=== PATIENT | female | born 1995 | race Caucasian/White ===

== ENCOUNTER 2018-02-16 21:04 | Emergency (ER) | payer BC ==
[~2018-02-16] VITALS: Ht 162.6 cm; Wt 72.6 kg
[~2018-02-16 21:04] MED LIST: AZIT250 PO; CEPH500 PO; CODGUAEL PO; CYCL10 PO; FAMO20 PO; LOPE2C PO; Naprosyn500 MG PO; PREN-16 PO; PROC10 PO; PROM25 PO; [UNRECOGNIZED DRUG - REMARK]
== END 2018-02-16 23:54 | disposition home or self-care (01) ==
LOC: ER 21:04
DX: O99.89 Other specified diseases and conditions complicating pregnancy, childbirth and the puerperium (principal); R51 Headache; Z88.0 Allergy status to penicillin; Z3A.01 Less than 8 weeks gestation of pregnancy
CPT/HCPCS: 96361; 96374; 96375; 99283; J1200; J2765; J7030

== ENCOUNTER 2018-10-14 23:31 | Inpatient (IN) | payer BC, OTHER ==
[~2018-10-14] VITALS: Ht 162.6 cm; Wt 82.0 kg
[~2018-10-14 23:31] MED LIST changes: +Verotin-Gr Cap1 EACH PO
[2018-10-15 00:47] LABS: BASOPHILS ABSOLUTE AUTO 0.02 K/mm3 (0.00-0.23); BASOPHILS PERCENT AUTO 0 % (0-2); EOSINOPHILS ABSOLUTE AUTO 0.03 K/mm3 (0.00-0.68); EOSINOPHILS PERCENT AUTO 0 % (0-6); Hematocrit 38.4 % (33.0-51.0); Hemoglobin 12.5 g/dL (11.5-16.0); IMMATURE GRAN ABSOLUTE AUTO 0.05 K/mm3 (0.00-0.10); IMMATURE GRAN PERCENT AUTO 1 % (0-1); LYMPHOCYTES ABSOLUTE AUTO 2.63 K/mm3 (0.84-5.20); LYMPHOCYTES PERCENT AUTO 27 % (21-46); MONOCYTES ABSOLUTE AUTO 0.68 K/mm3 (0.16-1.47); MONOCYTES PERCENT AUTO 7 % (4-13); Mean Corpuscular HGB 29.6 pg (26.0-34.0); Mean Corpuscular HGB Conc 32.6 g/dL (31.5-36.5); Mean Corpuscular Volume 91 fL (80-100); NEUTROPHILS ABSOLUTE AUTO 6.23 K/mm3 (1.96-9.15); NEUTROPHILS PERCENT AUTO 65 % (41-73); Platelet Count 278 K/mm3 (150-400); RDW Coefficient Variation 13.4 % (11.7-14.2); RDW Standard Deviation 44.2 fL (35.1-46.3); Red Blood Cell Count 4.22 M/mm3 (3.80-5.20); White Blood Cell Count 9.64 K/mm3 (4.00-11.30)
[2018-10-15 08:24] LABS: PCO2 Cord - Arterial 50.8 mmHg (40-50)
[2018-10-15 08:25] LABS: PO2 Cord - Arterial < 12 mmHg (16-20)
[2018-10-15 08:26] LABS: PCO2 Cord - Venous 43.7 mmHg (40-50); PO2 Cord - Venous 21.2 mmHg (28-32); pH Umbilical Cord - Venous 7.35 (7.26-7.35)
--- NOTE | 2018-10-15 08:31 | NUR ---
10/15/18 0831 Ambar Castellano DELIVERY VIABLE MALE AT 0814 WEIGHT [id number], HEAC 12.5 INCHES, CHEST 12.5 INCHES, LENGTH 20.5, UMBILCAL CORD SEGMENT COLLECTED LABELED AND SENT WITH RT FOR CORD GASES, UMBILICAL CORD BLOOD COLLECTED LABELED AND GIVEN TO RN, RIGHT AND LEFT FALLOPIAN TUBES COLLECTED SEPARATELY SENT TO PATHOLOGY, NB APGARS 9/9.
--- NOTE | 2018-10-15 09:50 | NUR ---
REPORT OFF TO KAVYARN
[2018-10-16 06:00] LABS: Hematocrit 31.6 % (33.0-51.0); Hemoglobin 10.3 g/dL (11.5-16.0); Mean Corpuscular HGB 30.5 pg (26.0-34.0); Mean Corpuscular HGB Conc 32.6 g/dL (31.5-36.5); Mean Platelet Volume 10.5 fL (9.1-12.4); Platelet Count 226 K/mm3 (150-400); RDW Coefficient Variation 13.3 % (11.7-14.2); RDW Standard Deviation 45.1 fL (35.1-46.3); Red Blood Cell Count 3.38 M/mm3 (3.80-5.20); White Blood Cell Count 13.17 K/mm3 (4.00-11.30)
[2018-10-16 06:06] LABS: Mean Corpuscular Volume 94 fL (80-100)
--- NOTE | 2018-10-16 11:36 | NUR ---
PT UP AMBULATING IN HALLS DOING WELL. PT REALLY WANTING TO GO HOME SO CALL OUT TO JYOTI WHO SAYS DR WONDERLY WANTS HER TO STAY UNTIL MORNING. PT PRETTY UPSET BUT UNDERSTANDS.
--- NOTE | 2018-10-16 13:51 | NUR ---
CONSULT. MOM FEELS HE IS DOING WELL ON LEFT NIPPLE, BUT IS REFUSING TO LATCH ON THE RIGHT SIDE AND HAS TRIED CHANGING POSITION ALREADY. INSTRUCT/DEMO SELF EBM TO HELP ENTICE A LATCH, POSITIONING TO HELP OBTAIN A DEEPER ASYMETRIC LATCH. HE IS VERY FUSSY AT BREAST, REMOVED BRIEFLY AND RETURNED TO BREAST AND HE LATCHED QUICKLY. MOM FEELS THE LATCH IS MORE COMFORTABLE, BOTH LIPS FLARED. INSTRUCT IN CHANGES TO EXPECT DURING THE FIRST WEEK WITH BABY AND WITH FEEDINGS AND REFERRED TO [facility] AND PAGE [facility] OF [facility] FOR PHOTOS AND INFORMATION. QUESTIONS ANSWERED. BOTH PARENTS ATTENTIVE TO TEACHING.
--- NOTE | 2018-10-17 10:00 | NUR ---
DISCHARGE INSTRUCTIONS REVIEWED AND SIGNED. ALL QUESTIONS ANSWERED. BANDS MATCHED
== END 2018-10-17 10:16 | disposition home or self-care (01) | DRG 785 ==
LOC: OBS 23:31 → BC 23:32 → OBS 23:44 → BC 23:46
PROVIDERS: ADMIT Obstetrics & Gynecology
PROC: 10D00Z1 Extraction of Products of Conception, Low, Open Approach (ICD-10-PCS; principal; 2018-10-15 09:00)
PROC: 0UT70ZZ Resection of Bilateral Fallopian Tubes, Open Approach (ICD-10-PCS; 2018-10-15 09:00)
DX: O34.211 Maternal care for low transverse scar from previous cesarean delivery (principal); O69.81X0 Labor and delivery complicated by cord around neck, without compression, not applicable or unspecified; Z3A.38 38 weeks gestation of pregnancy; Z37.0 Single live birth
CPT/HCPCS: 36415; 59025; 81001; 82803; 85025; 85027; 86850; 86900; 86901; 87086; 99213; J1100; J1885; J2250; J2270; J2370; J2405; J2590; J2765; J3010; J7120

== ENCOUNTER 2019-03-10 19:08 | Emergency (ER) | payer BC, OTHER ==
[~2019-03-10] VITALS: Ht 162.6 cm; Wt 77.1 kg
[2019-03-10] MEDS ORDERED: BENADRYL25 MG PO (19:27)
[2019-03-10] MEDS ORDERED: Prozac20 MG (19:27)
[2019-03-10] MEDS ORDERED: CETI5 PO (20:14)
== END 2019-03-10 20:31 | disposition home or self-care (01) ==
LOC: ER 19:08
DX: T49.8X1A Poisoning by other topical agents, accidental (unintentional), initial encounter (principal); L23.5 Allergic contact dermatitis due to other chemical products; Z88.0 Allergy status to penicillin; Z79.899 Other long term (current) drug therapy; F41.9 Anxiety disorder, unspecified
CPT/HCPCS: 96372; 99282-25; J3301; Q0163

== ENCOUNTER 2019-03-24 18:01 | Emergency (ER) | payer BC, OTHER ==
[~2019-03-24] VITALS: Ht 162.6 cm; Wt 77.1 kg
[~2019-03-24 18:01] MED LIST changes: +BENADRYL25 MG PO; +CETI5 PO; +Prozac20 MG
[2019-03-24 18:28] LABS: Source, Urine Clean Catch
[2019-03-24 18:41] LABS: Bilirubin, Urine Neg (Neg); Blood, Urine Neg (Neg); Glucose Qualitative, Urine Neg (Neg); Ketones, Urine Neg (Neg); Leukocyte Esterase, Urine Neg (Neg); Nitrite, Urine Neg (Neg); Protein, Urine Neg (Neg); Urobilinogen, Urine NORM (Normal)
[2019-03-24 18:46] LABS: Appearance, Urine Clear (Clear); Color, Urine Yellow (P-Yellow)
[2019-03-24 18:48] LABS: BASOPHILS ABSOLUTE AUTO 0.03 K/mm3 (0.00-0.23); BASOPHILS PERCENT AUTO 0 % (0-2); EOSINOPHILS ABSOLUTE AUTO 0.12 K/mm3 (0.00-0.68); EOSINOPHILS PERCENT AUTO 1 % (0-6); Hematocrit 42.6 % (33.0-51.0); Hemoglobin 13.6 g/dL (11.5-16.0); IMMATURE GRAN ABSOLUTE AUTO 0.03 K/mm3 (0.00-0.10); IMMATURE GRAN PERCENT AUTO 0 % (0-1); LYMPHOCYTES ABSOLUTE AUTO 2.87 K/mm3 (0.84-5.20); LYMPHOCYTES PERCENT AUTO 31 % (21-46); MONOCYTES ABSOLUTE AUTO 0.59 K/mm3 (0.16-1.47); MONOCYTES PERCENT AUTO 6 % (4-13); Mean Corpuscular HGB 29.6 pg (26.0-34.0); Mean Corpuscular HGB Conc 31.9 g/dL (31.5-36.5); Mean Corpuscular Volume 93 fL (80-100); Mean Platelet Volume 9.9 fL (9.1-12.4); NEUTROPHILS ABSOLUTE AUTO 5.69 K/mm3 (1.96-9.15); NEUTROPHILS PERCENT AUTO 61 % (41-73); Platelet Count 367 K/mm3 (150-400); RDW Coefficient Variation 12.9 % (11.7-14.2); White Blood Cell Count 9.33 K/mm3 (4.00-11.30)
[2019-03-24 19:10] LABS: Alanine Aminotransfer (ALT/SGP 30 U/L (12-78); Albumin, Blood 3.9 g/dL (3.4-5.0); Albumin/Globulin Ratio 0.9 (0.8-1.8); Alk Phos 106 U/L (50-136); Anion Gap 4 mmol/L (6-16); Aspartate Aminotrans (AST/SGOT 15 U/L (12-37); Bilirubin, Total 0.2 mg/dL (0.1-1.0); Blood Urea Nitrogen 12 mg/dL (8-24); Bun/Creatinine Ratio 16.8 (12.0-20.0); CO2, Blood 29 mmol/L (21-32); Calcium, Blood 8.9 mg/dL (8.5-10.1); Chloride, Blood 105 mmol/L (98-108); Creatinine, Blood 0.71 mg/dL (0.40-1.00); Globulin, Blood 4.3 g/dL (2.2-4.0); Glomerular Filtration Rate >60 (60-); Glucose, Blood 87 mg/dL (70-99); Potassium, Blood 3.5 mmol/L (3.5-5.5); Sodium, Blood 138 mmol/L (136-145); Total Protein, Blood 8.2 g/dL (6.4-8.2)
[2019-03-24] MEDS ORDERED: Norco 5-325 Ta1 EACH PO (21:20)
[2019-03-24] MEDS ORDERED: Zofran4 MG PO (21:20)
== END 2019-03-24 22:08 | disposition home or self-care (01) ==
LOC: ER 18:01
PROVIDERS: Physician Assistant
DX: R10.30 Lower abdominal pain, unspecified (principal); Z88.0 Allergy status to penicillin; Z79.899 Other long term (current) drug therapy
CPT/HCPCS: 36415; 74176; 80053; 81003; 81025; 83690; 85025; 99284-25

== ENCOUNTER → 2019-05-07 | Outpatient (CLI) | payer BC, OTHER ==
[~2019-05-07] MED LIST changes: +Norco 5-325 Ta1 EACH PO; +Zofran4 MG PO
[2019-05-08 09:57] LABS: Candida species (DNA Probe) Negative (NEGATIVE); G. vaginalis (DNA Probe) Negative (NEGATIVE); T. vaginalis (DNA Probe) Negative (NEGATIVE)
== END | disposition home or self-care (01) ==
LOC: LAB 12:06 → LAB SHORT 12:06
PROVIDERS: Nurse Practitioner Family
DX: N89.8 Other specified noninflammatory disorders of vagina (principal); R39.15 Urgency of urination; R35.0 Frequency of micturition
CPT/HCPCS: 87070; 87086; 87205; 87480; 87510; 87660

== ENCOUNTER 2019-08-26 16:59 | Emergency (ER) | payer OTHER, BC ==
[~2019-08-26] VITALS: Ht 162.6 cm; Wt 77.1 kg
[2019-08-26] MEDS ORDERED: Tamiflu75 MG PO (17:23)
== END 2019-08-26 19:32 | disposition home or self-care (01) ==
LOC: ER 16:59
DX: J11.1 Influenza due to unidentified influenza virus with other respiratory manifestations (principal); Z88.0 Allergy status to penicillin; Z79.899 Other long term (current) drug therapy
CPT/HCPCS: 99282

== ENCOUNTER 2021-05-16 14:34 | Emergency (ER) | payer OTHER ==
[~2021-05-16] VITALS: Ht 162.6 cm; Wt 76.2 kg
[~2021-05-16 14:34] MED LIST changes: +Tamiflu75 MG PO
[2021-05-16 15:41] LABS: BASOPHILS ABSOLUTE AUTO 0.03 K/mm3 (0.00-0.23); BASOPHILS PERCENT AUTO 0 % (0-2); EOSINOPHILS PERCENT AUTO 0 % (0-6); Hematocrit 42.3 % (33.0-51.0); Hemoglobin 13.9 g/dL (11.5-16.0); IMMATURE GRAN ABSOLUTE AUTO 0.05 K/mm3 (0.00-0.10); IMMATURE GRAN PERCENT AUTO 0 % (0-1); LYMPHOCYTES ABSOLUTE AUTO 0.88 K/mm3 (0.84-5.20); LYMPHOCYTES PERCENT AUTO 6 % (21-46); MONOCYTES ABSOLUTE AUTO 0.59 K/mm3 (0.16-1.47); MONOCYTES PERCENT AUTO 4 % (4-13); Mean Corpuscular HGB 28.6 pg (26.0-34.0); Mean Corpuscular HGB Conc 32.9 g/dL (31.5-36.5); Mean Corpuscular Volume 87 fL (80-100); Mean Platelet Volume 9.7 fL (9.1-12.4); NEUTROPHILS ABSOLUTE AUTO 13.99 K/mm3 (1.96-9.15); NEUTROPHILS PERCENT AUTO 90 % (41-73); Platelet Count 384 K/mm3 (150-400); RDW Coefficient Variation 13.4 % (11.7-14.2); RDW Standard Deviation 42.7 fL (35.1-46.3); Red Blood Cell Count 4.86 M/mm3 (3.80-5.20); White Blood Cell Count 15.54 K/mm3 (4.00-11.30)
[2021-05-16 15:55] LABS: Alanine Aminotransfer (ALT/SGP 27 U/L (12-78); Albumin, Blood 3.6 g/dL (3.4-5.0); Albumin/Globulin Ratio 0.8 (0.8-1.8); Alk Phos 110 U/L (50-136); Anion Gap 9 mmol/L (6-16); Aspartate Aminotrans (AST/SGOT 16 U/L (12-37); Bilirubin, Total 0.6 mg/dL (0.1-1.0); Blood Urea Nitrogen 9 mg/dL (8-24); Bun/Creatinine Ratio 13.2 (12.0-20.0); CO2, Blood 25 mmol/L (21-32); Calcium, Blood 9.1 mg/dL (8.5-10.1); Chloride, Blood 103 mmol/L (98-108); Creatinine, Blood 0.68 mg/dL (0.40-1.00); Globulin, Blood 4.7 g/dL (2.2-4.0); Glomerular Filtration Rate >60 (60-); Glucose, Blood 113 mg/dL (70-99); Potassium, Blood 3.6 mmol/L (3.5-5.5); Sodium, Blood 137 mmol/L (136-145); Total Protein, Blood 8.3 g/dL (6.4-8.2)
[2021-05-16 16:48] LABS: Source, Urine Clean Catch
[2021-05-16 16:56] LABS: Appearance, Urine Hazy (Clear); Bilirubin, Urine Neg (Neg); Blood, Urine 5+ (Neg); Color, Urine Amber (P-Yellow); Glucose Qualitative, Urine Neg (Neg); Ketones, Urine 1+ (Neg); Leukocyte Esterase, Urine 1+ (Neg); Nitrite, Urine Neg (Neg); Protein, Urine 2+ (Neg); Urobilinogen, Urine 1+ (Normal)
[2021-05-16 17:30] LABS: Bacteria Many /hpf; Red Blood Cells, Urine 0-2 /hpf (0-2); Squamous Epithelial Cells Many /hpf (Few)
== END 2021-05-16 17:06 | disposition home or self-care (01) ==
LOC: ER 14:34
PROVIDERS: Physician Assistant
DX: G43.909 Migraine, unspecified, not intractable, without status migrainosus (principal); Z88.0 Allergy status to penicillin
CPT/HCPCS: 36415; 80053; 81001; 81025; 85025; 87086; 96361; 96374; 96375; 99283-25; J0780; J1200; J1885; J2405; J7030

== ENCOUNTER 2022-04-06 17:14 | Emergency (ER) | payer OTHER ==
[~2022-04-06] VITALS: Ht 162.6 cm; Wt 81.7 kg
[2022-04-06 18:02] LABS: Source, Urine Clean Catch
[2022-04-06 18:05] LABS: Appearance, Urine Clear (Clear); Bilirubin, Urine Neg (Neg); Blood, Urine Neg (Neg); Color, Urine Yellow (P-Yellow); Glucose Qualitative, Urine Neg (Neg); Ketones, Urine 1+ (Neg); Leukocyte Esterase, Urine Neg (Neg); Nitrite, Urine Neg (Neg); Protein, Urine Neg (Neg); Urobilinogen, Urine NORM (Normal)
[2022-04-06] MEDS ORDERED: IBUP800 PO (18:49)
[2022-04-06] MEDS ORDERED: METPRE4DP PO (18:49)
== END 2022-04-06 19:08 | disposition home or self-care (01) ==
LOC: ER 17:14
PROVIDERS: Physician Assistant
DX: M54.16 Radiculopathy, lumbar region (principal); Z88.0 Allergy status to penicillin
CPT/HCPCS: 81003; 99283

== ENCOUNTER → 2022-06-11 | Outpatient (CLI) | payer OTHER ==
[~2022-06-11] MED LIST changes: +IBUP800 PO; +METPRE4DP PO
== END ==
LOC: LAB SHORT 17:56 → LAB 17:56
DX: J02.9 Acute pharyngitis, unspecified (principal)
CPT/HCPCS: 87081; 87147

== ENCOUNTER 2022-07-23 07:42 | Emergency (ER) | payer OTHER ==
[~2022-07-23] VITALS: Ht 162.6 cm; Wt 81.2 kg
[2022-07-23 10:04] LABS: Influenza A, PCR NEGATIVE (NEGATIVE); Influenza B, PCR NEGATIVE (NEGATIVE); Resp Syncytial Virus, PCR NEGATIVE (NEGATIVE); SARS-Cov-2 (COVID-19) PCR, MMC NEGATIVE (NEGATIVE)
[2022-07-23] MEDS ORDERED: METO10 PO (10:27)
[2022-07-23] MEDS ORDERED: ONDA4ODT MM (10:27)
== END 2022-07-23 10:48 | disposition home or self-care (01) ==
LOC: ER 07:42
PROVIDERS: Emergency Medicine
DX: B34.9 Viral infection, unspecified (principal); R11.2 Nausea with vomiting, unspecified; R19.7 Diarrhea, unspecified; Z88.0 Allergy status to penicillin; Z20.822 Contact with and (suspected) exposure to COVID-19
CPT/HCPCS: 0241U; A9270; J1885

== ENCOUNTER 2022-10-09 15:58 | Emergency (ER) | payer OTHER ==
[~2022-10-09] VITALS: Ht 162.6 cm; Wt 79.4 kg
[~2022-10-09 15:58] MED LIST changes: +METO10 PO; +ONDA4ODT MM
[2022-10-09 16:53] LABS: BASOPHILS ABSOLUTE AUTO 0.03 K/mm3 (0.00-0.23); BASOPHILS PERCENT AUTO 0 % (0-2); EOSINOPHILS ABSOLUTE AUTO 0.06 K/mm3 (0.00-0.68); EOSINOPHILS PERCENT AUTO 1 % (0-6); Hematocrit 41.5 % (33.0-51.0); Hemoglobin 13.9 g/dL (11.5-16.0); IMMATURE GRAN ABSOLUTE AUTO 0.02 K/mm3 (0.00-0.10); IMMATURE GRAN PERCENT AUTO 0 % (0-1); LYMPHOCYTES ABSOLUTE AUTO 2.38 K/mm3 (0.84-5.20); LYMPHOCYTES PERCENT AUTO 26 % (21-46); MONOCYTES ABSOLUTE AUTO 0.44 K/mm3 (0.16-1.47); MONOCYTES PERCENT AUTO 5 % (4-13); Mean Corpuscular HGB 29.1 pg (26.0-34.0); Mean Corpuscular HGB Conc 33.5 g/dL (31.5-36.5); Mean Corpuscular Volume 87 fL (80-100); Mean Platelet Volume 9.7 fL (9.1-12.4); NEUTROPHILS ABSOLUTE AUTO 6.27 K/mm3 (1.96-9.15); NEUTROPHILS PERCENT AUTO 68 % (41-73); Platelet Count 370 K/mm3 (150-400); RDW Standard Deviation 41.5 fL (35.1-46.3); Red Blood Cell Count 4.78 M/mm3 (3.80-5.20)
[2022-10-09 17:39] LABS: Thyroid Stimulating Hormone 2.56 uIU/mL (0.360-4.800)
[2022-10-09 17:40] LABS: Albumin, Blood 3.6 g/dL (3.4-5.0); Albumin/Globulin Ratio 0.8 (0.8-1.8); Bilirubin, Total 0.2 mg/dL (0.1-1.0); Calcium, Blood 9.6 mg/dL (8.5-10.1); Creatinine, Blood 0.56 mg/dL (0.40-1.00); Globulin, Blood 4.4 g/dL (2.2-4.0); Potassium, Blood 3.7 mmol/L (3.5-5.5)
== END 2022-10-09 18:53 | disposition home or self-care (01) ==
LOC: ER 15:58
PROVIDERS: Student in an Organized Health Care Education/Training Program
DX: R00.2 Palpitations (principal); Z88.0 Allergy status to penicillin
CPT/HCPCS: 36415; 71046; 80053; 84443; 84484; 85025; 93005; 93010; 99285-25

== ENCOUNTER → 2022-10-23 | Outpatient (CLI) | payer OTHER | END | disposition home or self-care (01) | LOC: LAB SHORT 16:48 → LAB 16:48 | PROVIDERS: Family Medicine | DX: Z01.419 Encounter for gynecological examination (general) (routine) without abnormal findings (principal) | CPT/HCPCS: G0145 ==

== ENCOUNTER 2023-03-06 18:50 | Emergency (ER) | payer OTHER ==
[~2023-03-06] VITALS: Ht 162.6 cm; Wt 81.7 kg
[~2023-03-06 18:50] MED LIST changes: +Prinivil5 MG PO
[2023-03-06 19:07] VITALS: BP 133/79
[2023-03-06 19:52] LABS: Source, Urine Clean Catch
[2023-03-06 20:06] LABS: Appearance, Urine Clear (Clear); Bilirubin, Urine Neg (Neg); Blood, Urine Neg (Neg); Glucose Qualitative, Urine Neg (Neg); Ketones, Urine Neg (Neg); Leukocyte Esterase, Urine Neg (Neg); Nitrite, Urine Neg (Neg); Protein, Urine Neg (Neg); Specific Gravity, Urine 1.015 (1.003-1.022); Urobilinogen, Urine NORM (Normal)
[2023-03-06 20:07] LABS: Color, Urine Pale Yellow (P-Yellow)
[2023-03-06 20:29] LABS: BASOPHILS ABSOLUTE AUTO 0.04 K/mm3 (0.00-0.23); BASOPHILS PERCENT AUTO 0 % (0-2); EOSINOPHILS ABSOLUTE AUTO 0.11 K/mm3 (0.00-0.68); EOSINOPHILS PERCENT AUTO 1 % (0-6); Hematocrit 39.6 % (33.0-51.0); Hemoglobin 12.9 g/dL (11.5-16.0); IMMATURE GRAN ABSOLUTE AUTO 0.03 K/mm3 (0.00-0.10); IMMATURE GRAN PERCENT AUTO 0 % (0-1); LYMPHOCYTES ABSOLUTE AUTO 2.98 K/mm3 (0.84-5.20); LYMPHOCYTES PERCENT AUTO 29 % (21-46); MONOCYTES ABSOLUTE AUTO 0.69 K/mm3 (0.16-1.47); MONOCYTES PERCENT AUTO 7 % (4-13); Mean Corpuscular HGB 29.2 pg (26.0-34.0); Mean Corpuscular HGB Conc 32.6 g/dL (31.5-36.5); Mean Corpuscular Volume 90 fL (80-100); Mean Platelet Volume 9.4 fL (9.1-12.4); NEUTROPHILS ABSOLUTE AUTO 6.57 K/mm3 (1.96-9.15); NEUTROPHILS PERCENT AUTO 63 % (41-73); Platelet Count 417 K/mm3 (150-400); RDW Coefficient Variation 13.9 % (11.7-14.2); RDW Standard Deviation 45.5 fL (35.1-46.3); Red Blood Cell Count 4.42 M/mm3 (3.80-5.20); White Blood Cell Count 10.42 K/mm3 (4.00-11.30)
[2023-03-06 21:05] LABS: Albumin, Blood 3.7 g/dL (3.4-5.0); Albumin/Globulin Ratio 0.9 (0.8-1.8); Bilirubin, Total 0.2 mg/dL (0.1-1.0); Bun/Creatinine Ratio 12.8 (12.0-20.0); Creatinine, Blood 0.63 mg/dL (0.40-1.00); Globulin, Blood 4.1 g/dL (2.2-4.0); Potassium, Blood 3.7 mmol/L (3.5-5.5); Total Protein, Blood 7.8 g/dL (6.4-8.2)
[2023-03-07] MEDS ORDERED: ZOLOFT50 MG PO (06:46)
[2023-03-07] MEDS ORDERED: SYNTHROID25 M12 PO (06:46)
[2023-03-07] MEDS ORDERED: VIVELLE DOT TD (06:47)
[2023-03-07] MEDS ORDERED: LISI5 PO (06:47)
[2023-03-07] MEDS ORDERED: Adipex-P37.5 M1 PO (06:48)
[2023-03-07] MEDS ORDERED: METFORMIN HCL500 M2 PO (06:48)
[2023-03-07] MEDS ORDERED: LEUPROLIDE1 MG/0.2 M SQ (06:48)
[2023-03-07] MEDS ORDERED: TOPI25 PO (06:49)
== END 2023-03-06 23:09 | disposition home or self-care (01) ==
LOC: ER 18:50
PROVIDERS: Student in an Organized Health Care Education/Training Program
DX: O00.90 Unspecified ectopic pregnancy without intrauterine pregnancy (principal); Z79.899 Other long term (current) drug therapy; Z88.0 Allergy status to penicillin
CPT/HCPCS: 76801; 76817; 80053; 81003; 84702; 85025; 86850; 86900; 86901; 99284-25

== ENCOUNTER 2023-03-07 06:38 | Day surgery (SDC) | payer OTHER ==
[2023-03-07] VITALS (15 sets, daily range): BP systolic 124–147; BP diastolic 74–97
[~2023-03-07] VITALS: Ht 162.6 cm; Wt 81.8 kg
[2023-03-07] MEDS ORDERED: ZOLOFT50 MG PO (06:46)
[2023-03-07] MEDS ORDERED: SYNTHROID25 M12 PO (06:46)
[2023-03-07] MEDS ORDERED: VIVELLE DOT TD (06:47)
[2023-03-07] MEDS ORDERED: LISI5 PO (06:47)
[2023-03-07] MEDS ORDERED: METFORMIN HCL500 M2 PO (06:48)
[2023-03-07] MEDS ORDERED: Adipex-P37.5 M1 PO (06:48)
[2023-03-07] MEDS ORDERED: LEUPROLIDE1 MG/0.2 M SQ (06:48)
[2023-03-07] MEDS ORDERED: TOPI25 PO (06:49)
--- NOTE | 2023-03-07 07:23 | NUR ---
Ambulatory in Day Surgery. Pre-Op teaching done. Pt verbalizes understanding. Patient confirms NPO status and agrees with scheduled surgery. History, Chart, Medications and Allergies reviewed before start of procedure. Lungs clear T/O to Auscultation. Patient States Post-Procedure ride home has been arranged.
--- NOTE | 2023-03-07 12:10 | NUR ---
PT UP TO VOID. INCISIONS C/D/I. NO VAGINAL BLEEDING NOTED
--- NOTE | 2023-03-07 12:36 | NUR ---
Patient up to Ambulate independently. Gait steady. Discharge instructions reviewed with patient. Patient verbalizes understanding. Copy given to patient to take home. DR DESHPANDE AT BEDSIDE VISITING PT Discharged via wheelchair to private car for ride home.
== END 2023-03-07 12:44 | disposition home or self-care (01) ==
LOC: ORSCMMR 06:38
PROVIDERS: Obstetrics & Gynecology
PROC: 10D24ZZ Extraction of Products of Conception, Ectopic, Percutaneous Endoscopic Approach (ICD-10-PCS; principal; 2023-03-07 08:00)
PROC: 8E0W4CZ Robotic Assisted Procedure of Trunk Region, Percutaneous Endoscopic Approach (ICD-10-PCS; principal; 2023-03-07 08:00)
DX: O00.91 Unspecified ectopic pregnancy with intrauterine pregnancy (principal); I10 Essential (primary) hypertension; K21.9 Gastro-esophageal reflux disease without esophagitis; Z79.899 Other long term (current) drug therapy
CPT/HCPCS: 82947; 86850; 86900; 86901; 88305; A9270; J0736; J0780; J1100; J1580; J1885; J2250; J2371; J2405; J2704; J2765; J3010; J7120

== ENCOUNTER → 2023-04-05 | Outpatient (CLI) | payer OTHER ==
[~2023-04-05] MED LIST changes: +Adipex-P37.5 M1 PO; +LEUPROLIDE1 MG/0.2 M SQ; +LISI5 PO; +METFORMIN HCL500 M2 PO; +SYNTHROID25 M12 PO; +TOPI25 PO; +VIVELLE DOT TD; +ZOLOFT50 MG PO
[2023-04-05 18:18] LABS: Source, Urine Clean Catch
[2023-04-05 19:15] LABS: Appearance, Urine Clear (Clear); Bilirubin, Urine Neg (Neg); Blood, Urine Neg (Neg); Color, Urine Yellow (P-Yellow); Glucose Qualitative, Urine Neg (Neg); Ketones, Urine Neg (Neg); Leukocyte Esterase, Urine Neg (Neg); Nitrite, Urine Neg (Neg); Protein, Urine Neg (Neg); Urobilinogen, Urine NORM (Normal)
[2023-04-06 14:31] LABS: Candida species (DNA Probe) Negative (NEGATIVE); G. vaginalis (DNA Probe) Negative (NEGATIVE); T. vaginalis (DNA Probe) Negative (NEGATIVE)
== END ==
LOC: LAB 18:11 → LAB SHORT 18:11
PROVIDERS: Obstetrics & Gynecology
DX: R30.0 Dysuria (principal); N76.0 Acute vaginitis
CPT/HCPCS: 81003; 87480; 87510; 87660

== ENCOUNTER 2024-03-15 07:03 | Emergency (ER) | payer OTHER ==
[~2024-03-15] VITALS: Ht 162.6 cm; Wt 71.7 kg
[~2024-03-15 07:03] MED LIST changes: +MOUNJARO5 MG/0.5 M SC
[2024-03-15 07:51] VITALS: BP 126/72
[2024-03-15] MEDS ORDERED: Acetaminophen 500 MG Tab PO ONE (08:15)
[2024-03-15] MEDS ORDERED: Ibuprofen 600 MG Tab PO ONE (08:15)
[2024-03-15] MEDS ORDERED: Metoclopramide HCl 10 MG Tab PO ONE (08:15)
[2024-03-15] MEDS ORDERED: Dexamethasone Sod Phos 10 MG/ML 1ML VIAL PO ONE (09:30)
[2024-03-15] MEDS ORDERED: METO10 PO (09:32)
== END 2024-03-15 09:42 | disposition home or self-care (01) ==
LOC: ER 07:03
DX: U07.1 COVID-19 (principal); Z88.0 Allergy status to penicillin
CPT/HCPCS: 99284; A9270; J1100

== ENCOUNTER 2024-04-02 10:58 | Day surgery (SDC) | payer OTHER ==
[2024-04-02] VITALS (16 sets, daily range): BP systolic 106–138; BP diastolic 56–93
[~2024-04-02] VITALS: Ht 162.6 cm; Wt 70.6 kg
[2024-04-02] MEDS ORDERED: Lactated Ringer's 1,000 ML IV SCH ×2 (11:00→17:10)
[2024-04-02] MEDS ORDERED: MOUNJARO2.5 MG/0.5 SQ (11:22)
--- NOTE | 2024-04-02 12:05 | NUR ---
Ambulatory in Day Surgery. History, Chart, Medications and Allergies reviewed before start of procedure. Lungs clear T/O to Auscultation. Patient confirms NPO status and agrees with scheduled surgery. Pre-Op teaching done. Pt verbalizes understanding. PT BELONGINGS PLACED UNDERNEATH BHAVINRNEY FOR SAFEKEEPING. PT HAS JEWELRY ON BOTH EARS AND NOSE THAT ARE TAPED, JEWELRY CONSENT SIGNED.
[2024-04-02] MEDS ORDERED: Midazolam HCl 1MG / ML 2ML Vial IV ONE (12:45)
[2024-04-02] MEDS ORDERED: Bupivacaine 0.5% HCl 5 MG/ML 30MLVIAL ONE (12:57)
[2024-04-02] MEDS ORDERED: Clindamycin 600mg in D5W 50 ML IV SCH ×2 (13:40→22:00)
[2024-04-02] MEDS ORDERED: Gentamicin Sulfate 100 MG in NS 100 ML IV SCH (13:48)
[2024-04-02] MEDS ORDERED: propofoL 20 ML IV ONE (13:55)
[2024-04-02] MEDS ORDERED: FentaNYL Citrate 50 MCG/ML 2 ML Injection ONE ×4 (13:55→17:19)
[2024-04-02] MEDS ORDERED: Gentamicin Sulfate 100 MG in NS 100 ML IV ONE (14:05)
[2024-04-02] MEDS ORDERED: Rocuronium Bromide 10 MG/ML 5ML Injection IV ONE (14:32)
[2024-04-02] MEDS ORDERED: Sugammadex Sodium 200 MG/2ML SDV (100 MG/ML) ONE (16:39)
[2024-04-02] MEDS ORDERED: OxyCODONE 5 mg/Acetamin 325 mg TABLET PO PRN (17:05)
[2024-04-02] MEDS ORDERED: Naloxone HCl 0.4MG / ML 1ML Vial IV PRN (17:05)
[2024-04-02] MEDS ORDERED: Promethazine HCl 25 MG Tab PO PRN (17:05)
[2024-04-02] MEDS ORDERED: Ondansetron 4 MG TAB PO PRN (17:05)
[2024-04-02] MEDS ORDERED: Promethazine HCl 12.5 MG Supp PR PRN (17:05)
[2024-04-02] MEDS ORDERED: Ondansetron HCl 2 MG / ML 2ML Vial IV PRN (17:05)
[2024-04-02] MEDS ORDERED: Simethicone 80 MG Chew PO PRN (17:10)
[2024-04-02] MEDS ORDERED: Ondansetron HCl 2 MG / ML 2ML Vial ONE (17:12)
[2024-04-02] MEDS ORDERED: Prochlorperazine Edisylate 10 mg Vial ONE (17:23)
[2024-04-02] MEDS ORDERED: Ketorolac Tromethamine 30mg Vial IV PRN (17:35)
[2024-04-02] MEDS ORDERED: HYDROmorphone HCl/Pf 1MG SYR IV PRN (17:35)
--- NOTE | 2024-04-02 18:15 | NUR ---
1809 ARRIVED TO ROOM FROM PACU, DROWSY, OPENS EYES TO VERBAL STIMULI ABD WITH 4 LAP SITES WITH WOUND GLUE NO DRAINAGE. DORENE PAD IN PLACE NO DRAINAGE. DOE DRAINING CLEAR YELLOW URINE. PTS FAMILY AT BEDSIDE
[2024-04-02] MEDS ORDERED: ALPRAZolam 1 MG Tab PO PRN (20:10)
[2024-04-03 03:15] VITALS: BP 121/76
[2024-04-03 05:05] LABS: BASOPHILS ABSOLUTE AUTO 0.02 K/mm3 (0.00-0.23); BASOPHILS PERCENT AUTO 0 % (0-2); EOSINOPHILS ABSOLUTE AUTO 0.01 K/mm3 (0.00-0.68); EOSINOPHILS PERCENT AUTO 0 % (0-6); Hematocrit 39.8 % (33.0-51.0); Hemoglobin 13.2 g/dL (11.5-16.0); IMMATURE GRAN ABSOLUTE AUTO 0.01 K/mm3 (0.00-0.10); IMMATURE GRAN PERCENT AUTO 0 % (0-1); LYMPHOCYTES ABSOLUTE AUTO 1.06 K/mm3 (0.84-5.20); LYMPHOCYTES PERCENT AUTO 12 % (21-46); MONOCYTES ABSOLUTE AUTO 0.53 K/mm3 (0.16-1.47); MONOCYTES PERCENT AUTO 6 % (4-13); Mean Corpuscular HGB 28.8 pg (26.0-34.0); Mean Corpuscular HGB Conc 33.2 g/dL (31.5-36.5); Mean Corpuscular Volume 87 fL (80-100); Mean Platelet Volume 9.8 fL (9.1-12.4); NEUTROPHILS ABSOLUTE AUTO 7.06 K/mm3 (1.96-9.15); NEUTROPHILS PERCENT AUTO 81 % (41-73); Platelet Count 329 K/mm3 (150-400); RDW Coefficient Variation 13.3 % (11.7-14.2); RDW Standard Deviation 41.4 fL (35.1-46.3); Red Blood Cell Count 4.58 M/mm3 (3.80-5.20); White Blood Cell Count 8.69 K/mm3 (4.00-11.30)
[2024-04-03] MEDS ORDERED: Percocet 5-3251 EACH PO (05:36)
[2024-04-03] MEDS ORDERED: PROM25 PO (05:37)
[2024-04-03] MEDS ORDERED: IBUP800 PO (05:37)
--- NOTE | 2024-04-03 06:18 | NUR ---
SHIFT SUMMARY PT REMAINS A&O X4, PLEASANT AND COOPERATIVE WITH CARE. VSS. PT C/O PAIN IN ABDOMEN WELL "GAS PAIN" 6-02/25. MEDICATION PER EMAR WITH GOOD RELIEF, BRINGING PAIN LEVEL TO 2-3/10. PT ABLE TO GET SOME REST DURING THE SHIFT. ABX PER OCT. PT VOIDING WELL WITH SMALL AMOUNT BLOOD NOTED, PT REPORTS CHANGED PAD X1 AND WAS MODERATELY SATURATED. PT USING RESTROOM INDEPENDENTLY. NO ACUTE CHANGES. PT PLANS TO DISCHARGE THIS AM.
--- NOTE | 2024-04-03 07:42 | NUR ---
0700 DISCHARGE INSTRUCTIONS REVIEWED WITH PATIENTS AND QUESTIONS ANSWERED. ABD INCISIONS X4 WITH FLUE INTACT NO DRAINAGE. PT REPORTS SMALL AMOUNT BLOODY DRAINAGE AFTER URINATION ON TISSUE. TYLER PO MED, FOODS AND FLUIDS. AMBULATING IN ROOM WITH ABD BINDER IN PLACE. DISHARGED TO HOME AT 0710
--- NOTE | 2024-04-03 07:46 | NUR ---
IV DC'D INTACT PRIOR TO DISCHARGE
[2024-04-03] MEDS ORDERED: Gentamicin Sulfate 100 MG in NS 100 ML IV SCH (09:00)
== END 2024-04-03 08:02 | disposition home or self-care (01) ==
LOC: ORSCMMR 10:58 → SURS 18:20 → ORSCMMR 04-03 07:30 → SURS 04-03 08:02 → ORSCMMR 04-03 08:02 → ORD 04-09 08:00
PROVIDERS: Obstetrics & Gynecology
PROC: 0UT94ZZ Resection of Uterus, Percutaneous Endoscopic Approach (ICD-10-PCS; principal; 2024-04-02 12:30)
PROC: 0UNF4ZZ Release Cul-de-sac, Percutaneous Endoscopic Approach (ICD-10-PCS; principal; 2024-04-02 12:30)
DX: N94.6 Dysmenorrhea, unspecified (principal); N94.12 Deep dyspareunia; R10.2 Pelvic and perineal pain; N80.9 Endometriosis, unspecified; I10 Essential (primary) hypertension; E78.5 Hyperlipidemia, unspecified; K21.9 Gastro-esophageal reflux disease without esophagitis; F41.1 Generalized anxiety disorder; F32.A Depression, unspecified; Z79.85 Long-term (current) use of injectable non-insulin antidiabetic drugs; Z79.899 Other long term (current) drug therapy
CPT/HCPCS: 36415; 85025; 86850; 86900; 86901; 88307; A9270; J0780; J1580; J1885; J2250; J2405; J2704; J3010; J7120

== ENCOUNTER → 2024-04-11 | Outpatient (CLI) | payer OTHER ==
[~2024-04-11] MED LIST changes: +MOUNJARO2.5 MG/0.5 SQ; +Percocet 5-3251 EACH PO
== END | disposition home or self-care (01) ==
LOC: LAB 10:06 → LAB SHORT 10:06
DX: R30.0 Dysuria (principal)
CPT/HCPCS: 87086

== ENCOUNTER 2025-05-01 14:23 | Emergency (ER) | payer OTHER ==
[~2025-05-01] VITALS: Ht 162.6 cm; Wt 81.7 kg
[2025-05-01 14:37] VITALS: BP 139/93
[2025-05-01] MEDS ORDERED: NS 1,000 ML IV SCH (14:40)
[2025-05-01] MEDS ORDERED: Ketorolac Tromethamine 15mg Vial IV ONE (14:40)
[2025-05-01] MEDS ORDERED: DiphenhydrAMINE HCl 50 MG/ML 1ML Vial IV ONE (14:40)
[2025-05-01] MEDS ORDERED: Prochlorperazine Edisylate 10 mg Vial IV ONE (14:40)
[2025-05-01 15:06] LABS: BASOPHILS ABSOLUTE AUTO 0.04 K/mm3 (0.00-0.23); BASOPHILS PERCENT AUTO 1 % (0-2); EOSINOPHILS ABSOLUTE AUTO 0.08 K/mm3 (0.00-0.68); EOSINOPHILS PERCENT AUTO 1 % (0-6); Hematocrit 41.1 % (33.0-51.0); Hemoglobin 13.5 g/dL (11.5-16.0); IMMATURE GRAN ABSOLUTE AUTO 0.02 K/mm3 (0.00-0.10); IMMATURE GRAN PERCENT AUTO 0 % (0-1); LYMPHOCYTES ABSOLUTE AUTO 2.17 K/mm3 (0.84-5.20); LYMPHOCYTES PERCENT AUTO 28 % (21-46); MONOCYTES ABSOLUTE AUTO 0.49 K/mm3 (0.16-1.47); MONOCYTES PERCENT AUTO 6 % (4-13); Mean Corpuscular HGB Conc 32.8 g/dL (31.5-36.5); Mean Corpuscular Volume 90 fL (80-100); NEUTROPHILS ABSOLUTE AUTO 5.01 K/mm3 (1.96-9.15); NEUTROPHILS PERCENT AUTO 64 % (41-73); NRBC ABSOLUTE 0.00 K/mm3 (0.00-0.02); NRBC Auto 0.0 /100 WBC (0.0-0.2); Platelet Count 397 K/mm3 (150-400); RDW Coefficient Variation 13.1 % (11.7-14.2); RDW Standard Deviation 42.8 fL (35.1-46.3)
[2025-05-01 15:30] LABS: Alanine Aminotransfer (ALT/SGP 22.0 U/L (12-78); Albumin, Blood 3.4 g/dL (3.4-5.0); Albumin/Globulin Ratio 0.9 (0.8-1.8); Anion Gap 9.0 mmol/L (3-11); Aspartate Aminotrans (AST/SGOT 19.0 U/L (12-37); Bilirubin, Total 0.2 mg/dL (0.1-1.0); Blood Urea Nitrogen 12.0 mg/dL (8-24); CO2, Blood 26.0 mmol/L (21-32); Calcium, Blood 8.4 mg/dL (8.5-10.1); Chloride, Blood 108.0 mmol/L (98-108); Creatinine, Blood 0.63 mg/dL (0.40-1.00); Globulin, Blood 3.7 g/dL (2.2-4.0); Glucose, Blood 109.0 mg/dL (70-99); Potassium, Blood 4.0 mmol/L (3.5-5.5); Sodium, Blood 139.0 mmol/L (136-145); Total Protein, Blood 7.1 g/dL (6.4-8.2)
== END 2025-05-01 16:04 | disposition home or self-care (01) ==
LOC: ER 14:23
PROVIDERS: Student in an Organized Health Care Education/Training Program
DX: K52.9 Noninfective gastroenteritis and colitis, unspecified (principal); R51.9 Headache, unspecified; E78.5 Hyperlipidemia, unspecified; K21.9 Gastro-esophageal reflux disease without esophagitis; Z79.899 Other long term (current) drug therapy; Z88.0 Allergy status to penicillin
CPT/HCPCS: 80053; 83690; 84703; 85025; 96374; 96375; 99283-25; J0780; J1200; J1885; J7030

== ENCOUNTER → 2025-05-24 | Outpatient (CLI) | payer OTHER | LOC: LAB SHORT 19:02 → LAB 19:02 | DX: J02.9 Acute pharyngitis, unspecified (principal) | CPT/HCPCS: 87081 ==